=== PATIENT | female | born 1960 | race Caucasian/White ===

== ENCOUNTER 2017-07-17 07:19 | Day surgery (SDC) | payer BC ==
[2017-07-15 12:05] VITALS: BMI 26.3
[~2017-07-17 07:19] MED LIST: LACTATED RINGERS 1,000 ML IV SCH
[2017-07-17 08:23] VITALS: RESP 16; TEMP 97.9
[2017-07-17] MEDS ORDERED: MIDAZOLAM 2 MG/2 ML VIAL ONE (08:56)
[2017-07-17] MEDS ORDERED: fentaNYL (PF) 50 MCG/ML 2 ML AMP ONE (08:56)
[2017-07-17] MEDS ORDERED: PROPOFOL 10 MG/ML 20 ML VIAL IV ONE (08:56)
--- NOTE | 2017-07-17 09:06 | P.GSHP ---
History of Present Illness H&P Date: 07/17/17 Chief Complaint: Dysphagia This a 56-year-old female who presents today for EGD. Patient's had a previous history of gastric sleeve surgery. She's had some dysphagia. Her recent esophagram shows some questionable narrowing of the proximal gastric sleeve. Past Medical History Past Medical History: GERD/Reflux Additional Past Medical History / Comment(s): DYSPHAGIA History of Any Multi-Drug Resistant Organisms: None Reported Past Surgical History: Bariatric Surgery, Section, Cholecystectomy, Hysterectomy, Orthopedic Surgery Additional Past Surgical History / Comment(s): sleeve gastrectomy 2013, keloids removed bilateral ears, heel spur surgery right foot great toe implant bunionectomy, neck surgery c6 c7 Past Anesthesia/Blood Transfusion Reactions: No Reported Reaction Smoking Status: Never smoker Medications and Allergies Home Medications Medication Instructions Recorded Confirmed Type Ascorbic Acid [Vitamin C] 1,000 mg PO DAILY 07/04/17 07/17/17 History Cholecalciferol [Vitamin D3] 1,000 unit PO DAILY 07/04/17 07/17/17 History Multivitamins, Thera [Multivitamin 1 tab PO DAILY 07/04/17 07/17/17 History (formulary)] Omeprazole 40 mg PO DAILY 07/04/17 07/17/17 History buPROPion HCL [Wellbutrin XL] 300 mg PO DAILY 07/04/17 07/17/17 History Allergies Allergy/AdvReac Type Severity Reaction Status Date / Time adhesive Allergy Rash/Hives Verified 07/17/17 08:12 aspirin Allergy Swelling Verified 07/17/17 08:12 codeine Allergy Rash/Hives Verified 07/17/17 08:12 latex Allergy Rash/Hives Verified 07/17/17 08:12 Penicillins Allergy Rash/Hives Verified 07/17/17 08:12 pneumococcal vaccine Allergy Rash/Hives Verified 07/17/17 08:12 Cephalosporins AdvReac Anaphylaxis Verified 07/17/17 08:13 Sulfa (Sulfonamide AdvReac Unknown Verified 07/17/17 08:12 Antibiotics) Surgical - Exam Vital Signs Temp Pulse Resp BP Pulse Ox 97.9 F 60 16 114/71 100 07/17/17 08:22 07/17/17 08:22 07/17/17 08:22 07/17/17 08:22 07/17/17 08:22 - General well developed, no distress - Eyes PERRL - ENT normal pinna - Neck no masses - Respiratory normal expansion - Cardiovascular Rhythm: regular - Abdomen Abdomen: soft, non tender Assessment and Plan Plan: Dysphagia. Possible gastric sleeve narrowing. We'll perform EGD with balloon dilatation
--- NOTE | 2017-07-17 09:24 | P.OP ---
Date of Procedure: 07/17/17 Preoperative Diagnosis: Dysphagia Postoperative Diagnosis: Mild antral gastritis Mild narrowing of gastric sleeve near incisura Procedure(s) Performed: EGD with dilatation Anesthesia: MAC Surgeon: Lennox Hernandez Pathology: other (Antrum) Condition: stable Description of Procedure: The patient's placed on the endoscopy table lateral position. She received IV sedation. The gastroscope placed oropharynx passed in the esophagus and into the stomach. Scope was then placed through the pylorus into the first second portion duodenum. Scope was withdrawn. And appeared to be a slight narrowing of the sleeve near the incisura of the stomach. Scope was brought back further and there is no other narrowing seen. The GE junction was patent. The 20 mm balloon was then placed across incisura this was dilated. There is known to any injury to the stomach. The scope was withdrawn. Patient top procedure well and was sent to recovery in stable condition.
[2017-07-17 09:45] VITALS: PULSE 53
[2017-07-17 09:55] VITALS: BP 114/68
== END 2017-07-17 10:15 | disposition home or self-care (01) ==
LOC: ORWHC2ENDO 07:19
PROVIDERS: ATTEND Surgery
DX: K31.89 Other diseases of stomach and duodenum (principal); K29.50 Unspecified chronic gastritis without bleeding; K21.9 Gastro-esophageal reflux disease without esophagitis; R01.1 Cardiac murmur, unspecified; Z79.899 Other long term (current) drug therapy; Z88.6 Allergy status to analgesic agent; Z88.1 Allergy status to other antibiotic agents; Z91.040 Latex allergy status; Z88.5 Allergy status to narcotic agent; Z88.0 Allergy status to penicillin; Z88.2 Allergy status to sulfonamides; Z88.7 Allergy status to serum and vaccine; Z91.09 Other allergy status, other than to drugs and biological substances
CPT/HCPCS: 88305; 88342; 43239; 43245; J2250; J3010; J2704; C1726; 43249

== ENCOUNTER → 2017-08-01 | Outpatient (CLI) | payer BC ==
[2017-08-01 10:14] VITALS: BP 122/65; PULSE 53; RESP 16; TEMP 97.6; BMI 26.2
--- NOTE | 2017-08-02 09:31 | P.HPBAR ---
Bariatric H&P - History & Physicial H&P Date: 08/01/17 History & Physicial: Visit/CC: EGD follow up Patient initial contact: Initial weight: Initial weight in pounds: Height: 5 ft 2 in Initial BMI: Last weight: Current weight: 65.181 kg Current weight in pounds: 143.70 Current BMI: 26.2 [place] body weight (based on NIH guidelines): 49.895 kg Excess body weight loss: The patient is a 57 year-old F who presents for Bariatric Assessment. Patient presents today for gastric sleeve follow-up. She states her GERD and dysphagia symptoms have improved. She denies any dysphagia. She's had minimal GERD. The patient underwent EGD with balloon dilatation approximately 3 weeks ago. Past Medical History Past Medical History: GERD/Reflux Additional Past Medical History / Comment(s): DYSPHAGIA History of Any Multi-Drug Resistant Organisms: None Reported Past Surgical History: Bariatric Surgery, Section, Cholecystectomy, Hysterectomy, Orthopedic Surgery Additional Past Surgical History / Comment(s): sleeve gastrectomy 2013, keloids removed bilateral ears, heel spur surgery right foot great toe implant bunionectomy, neck surgery c6 c7 Past Anesthesia/Blood Transfusion Reactions: No Reported Reaction Smoking Status: Never smoker Surgical - Exam Vital Signs Temp Pulse Resp BP 97.6 F 53 L 16 122/65 08/01/17 10:08 08/01/17 10:08 08/01/17 10:08 08/01/17 10:08 - General well developed, well nourished, no distress - Eyes PERRL, normal ocular movement - ENT normal pinna - Cardiovascular Rhythm: regular - Abdomen Abdomen: soft, non tender Bariatric Assessment & Plan Plan: The patient is doing well from her sleeve yesterday. Her dysphagia has resolved. Her GERD symptoms are minimal and will be observed. She'll follow- up in 8 weeks. Bariatric Checklist Checklist: Plan: Checklist: EGD: 1. Hiatal hernia: 2. H. Pylori: HgbA1c: Vitamin D: Smoking: Never smoker Primary care physician referral: dr pichardo Psychiatry clearance: Cardiology clearance: Sleep study: Diet journal: VTE risk score: VTE risk level: Rehab needs at discharge:
--- NOTE | 2017-08-02 09:31 | P.HPBAR ---
Bariatric H&P - History & Physicial H&P Date: 08/01/17 History & Physicial: Visit/CC: EGD follow up Patient initial contact: Initial weight: Initial weight in pounds: Height: 5 ft 2 in Initial BMI: Last weight: Current weight: 65.181 kg Current weight in pounds: 143.70 Current BMI: 26.2 [place] body weight (based on NIH guidelines): 49.895 kg Excess body weight loss: The patient is a 57 year-old F who presents for Bariatric Assessment. Past Medical History Past Medical History: GERD/Reflux Additional Past Medical History / Comment(s): DYSPHAGIA History of Any Multi-Drug Resistant Organisms: None Reported Past Surgical History: Bariatric Surgery, Section, Cholecystectomy, Hysterectomy, Orthopedic Surgery Additional Past Surgical History / Comment(s): sleeve gastrectomy 2013, keloids removed bilateral ears, heel spur surgery right foot great toe implant bunionectomy, neck surgery c6 c7 Past Anesthesia/Blood Transfusion Reactions: No Reported Reaction Smoking Status: Never smoker Surgical - Exam Vital Signs Temp Pulse Resp BP 97.6 F 53 L 16 122/65 08/01/17 10:08 08/01/17 10:08 08/01/17 10:08 08/01/17 10:08 Bariatric Checklist Checklist: Plan: Checklist: EGD: 1. Hiatal hernia: 2. H. Pylori: HgbA1c: Vitamin D: Smoking: Never smoker Primary care physician referral: dr pichardo Psychiatry clearance: Cardiology clearance: Sleep study: Diet journal: VTE risk score: VTE risk level: Rehab needs at discharge:
== END | disposition home or self-care (01) ==
LOC: BARWHC3 09:47
PROVIDERS: ATTEND Surgery
DX: Z09 Encounter for follow-up examination after completed treatment for conditions other than malignant neoplasm (principal); K21.9 Gastro-esophageal reflux disease without esophagitis; Z98.84 Bariatric surgery status
CPT/HCPCS: 99211

== ENCOUNTER → 2017-10-31 | Outpatient (CLI) | payer BC ==
[2017-10-31 09:40] VITALS: BP 114/65; PULSE 61; TEMP 97.9; BMI 26.9
[2017-10-31 09:48] LABS: HCT 39.6 % (34.0-46.0); HGB 12.7 gm/dL (11.4-16.0); MCH 28.8 pg (25.0-35.0); MCHC 32.2 g/dL (31.0-37.0); MCV 89.5 fL (80.0-100.0); Mean Platelet Volume 7.3; Platelet Count 234 k/uL (150-450); RBC 4.42 m/uL (3.80-5.40); RDW 13.8 % (11.5-15.5); WBC 4.5 k/uL (3.8-10.6)
[2017-10-31 10:22] LABS: ALT 28 U/L (9-52); AST 26 U/L (14-36); Albumin 4.3 g/dL (3.5-5.0); Alkaline Phosphatase 86 U/L (38-126); Anion Gap 9 mmol/L; Blood Urea Nitrogen 16 mg/dL (7-17); Calcium 9.4 mg/dL (8.4-10.2); Carbon Dioxide 29 mmol/L (22-30); Chloride 103 mmol/L (98-107); Glucose 91 mg/dL (74-99); Potassium 4.1 mmol/L (3.5-5.1); Sodium 141 mmol/L (137-145); Total Bilirubin 0.4 mg/dL (0.2-1.3); Total Protein 7.3 g/dL (6.3-8.2)
--- NOTE | 2017-10-31 10:42 | P.HPBAR ---
Bariatric H&P - History & Physicial H&P Date: 10/31/17 History & Physicial: Visit/CC: sleeve follow up Patient initial contact: Initial weight: 322 Initial weight in pounds: Height: 5 ft 2 in Initial BMI: Last weight: 145 Current weight: 66.769 kg Current weight in pounds: 147.20 Current BMI: 26.9 [place] body weight (based on NIH guidelines): 49.895 kg Excess body weight loss: The patient is a 57 year-old F who presents for Bariatric Assessment. The patient presents today for sleeve gastrectomy follow-up. She states she's been a few pounds over the holiday. I'll refer chart she appears to have gained 3 pounds. She has some minimal chronic GERD. Past Medical History Past Medical History: GERD/Reflux Additional Past Medical History / Comment(s): DYSPHAGIA History of Any Multi-Drug Resistant Organisms: None Reported Past Surgical History: Bariatric Surgery, Section, Cholecystectomy, Hysterectomy, Orthopedic Surgery Additional Past Surgical History / Comment(s): sleeve gastrectomy 2013, keloids removed bilateral ears, heel spur surgery right foot great toe implant bunionectomy, neck surgery c6 c7 Past Anesthesia/Blood Transfusion Reactions: No Reported Reaction Past Psychological History: Anxiety Smoking Status: Never smoker Past Alcohol Use History: None Reported Past Drug Use History: None Reported Surgical - Exam Vital Signs Temp Pulse BP 97.9 F 61 114/65 10/31/17 09:35 10/31/17 09:35 10/31/17 09:35 - General well developed, no distress - Eyes PERRL - ENT normal pinna - Neck no masses - Respiratory normal expansion - Cardiovascular Rhythm: regular - Abdomen Abdomen: soft, non tender Results - Labs 10/31/17 09:31 10/31/17 09:31 Diabetes panel 10/31/17 Range/Units 09:31 Sodium 141 (137-145) mmol/L Potassium 4.1 (3.5-5.1) mmol/L Chloride 103 (98-107) mmol/L Carbon Dioxide 29 (22-30) mmol/L BUN 16 (7-17) mg/dL Creatinine 0.86 (0.52-1.04) mg/dL Glucose 91 (74-99) mg/dL Calcium 9.4 (8.4-10.2) mg/dL AST 26 (14-36) U/L ALT 28 (9-52) U/L Alkaline Phosphatase 86 (38-126) U/L Total Protein 7.3 (6.3-8.2) g/dL Albumin 4.3 (3.5-5.0) g/dL Calcium panel 10/31/17 Range/Units 09:31 Calcium 9.4 (8.4-10.2) mg/dL Albumin 4.3 (3.5-5.0) g/dL Pituitary panel 10/31/17 Range/Units 09:31 Sodium 141 (137-145) mmol/L Potassium 4.1 (3.5-5.1) mmol/L Chloride 103 (98-107) mmol/L Carbon Dioxide 29 (22-30) mmol/L BUN 16 (7-17) mg/dL Creatinine 0.86 (0.52-1.04) mg/dL Glucose 91 (74-99) mg/dL Calcium 9.4 (8.4-10.2) mg/dL Adrenal panel 10/31/17 Range/Units 09:31 Sodium 141 (137-145) mmol/L Potassium 4.1 (3.5-5.1) mmol/L Chloride 103 (98-107) mmol/L Carbon Dioxide 29 (22-30) mmol/L BUN 16 (7-17) mg/dL Creatinine 0.86 (0.52-1.04) mg/dL Glucose 91 (74-99) mg/dL Calcium 9.4 (8.4-10.2) mg/dL Total Bilirubin 0.4 (0.2-1.3) mg/dL AST 26 (14-36) U/L ALT 28 (9-52) U/L Alkaline Phosphatase 86 (38-126) U/L Total Protein 7.3 (6.3-8.2) g/dL Albumin 4.3 (3.5-5.0) g/dL Bariatric Assessment & Plan Plan: Status post sleeve yesterday. Patient is doing quite well. Her GERD is minimal. She'll have her omeprazole reordered. She'll follow-up in 3-4 months. Some baseline labs were ordered. Bariatric Checklist Checklist: Plan: Checklist: EGD: 1. Hiatal hernia: 2. H. Pylori: HgbA1c: Vitamin D: Smoking: Never smoker Primary care physician referral: dr pichardo Psychiatry clearance: Cardiology clearance: Sleep study: Diet journal: VTE risk score: VTE risk level: Rehab needs at discharge:
[2017-10-31 16:05] LABS: Vitamin D 25 Hydroxy 43.6 ng/mL (30.0-100.0)
[2017-11-04 04:32] LABS: Vitamin B1 41 ug/L (38-122)
[2017-11-04 06:40] LABS: Vitamin A 50 ug/dL (38-106)
== END | disposition home or self-care (01) ==
LOC: BARWHC3 08:52
PROVIDERS: ATTEND Surgery
DX: Z09 Encounter for follow-up examination after completed treatment for conditions other than malignant neoplasm (principal); F41.9 Anxiety disorder, unspecified; Z98.84 Bariatric surgery status
CPT/HCPCS: 36415; 80053; 82306; 82607; 84425; 84590; 85027; 99211

== ENCOUNTER → 2021-05-14 | Outpatient (CLI) | payer OTHER ==
[2021-05-14 14:19] VITALS: BP 122/72; PULSE 68; RESP 18; TEMP 98.3; BMI 31.1
--- NOTE | 2021-05-14 15:12 | P.HPBAR ---
Bariatric H&P - History & Physicial H&P Date: 05/14/21 History & Physicial: Visit/CC: follow up Patient initial contact: Initial weight: 100.698 kg Initial weight in pounds: 222.00 Height: 5 ft 2 in Initial BMI: 40.6 Last weight: Current weight: 77.111 kg Current weight in pounds: 170.00 Current BMI: 31.1 [place] body weight (based on NIH guidelines): 49.895 kg Excess body weight loss: 46.4% The patient is a 60 year-old F who presents for Bariatric Assessment. She presents today for bariatric follow-up. She has some complaints of mild GERD. Past Medical History Past Medical History: GERD/Reflux Additional Past Medical History / Comment(s): DYSPHAGIA. kidney stones. History of Any Multi-Drug Resistant Organisms: None Reported Past Surgical History: Bariatric Surgery, Section, Cholecystectomy, Hysterectomy, Orthopedic Surgery Additional Past Surgical History / Comment(s): sleeve gastrectomy 2013, keloids removed bilateral ears, heel spur surgery right foot great toe implant bunionectomy, neck surgery c6 c7 Past Anesthesia/Blood Transfusion Reactions: No Reported Reaction Past Psychological History: Anxiety Smoking Status: Never smoker Past Alcohol Use History: None Reported Past Drug Use History: None Reported Surgical - Exam Vital Signs Temp Pulse Resp BP 98.3 F 68 18 122/72 05/14/21 14:09 05/14/21 14:09 05/14/21 14:09 05/14/21 14:09 - General well developed, well nourished, no distress - Eyes PERRL - ENT normal pinna - Neck no masses - Respiratory normal expansion - Cardiovascular Rhythm: regular - Abdomen Abdomen: soft, non tender Bariatric Assessment & Plan Plan: Status post sleeve gastrectomy. Patient is minimal observed. She'll follow-up in 4 weeks. Bariatric Checklist Checklist: Plan: Checklist: EGD: 1. Hiatal hernia: 2. H. Pylori: HgbA1c: Vitamin D: Smoking: Never smoker Primary care physician referral: dr pichardo Psychiatry clearance: Cardiology clearance: Sleep study: Diet journal: VTE risk score: VTE risk level: Rehab needs at discharge:
[2021-05-14 15:21] LABS: HCT 37.2 % (34.0-46.0); HGB 12.2 gm/dL (11.4-16.0); MCH 28.9 pg (25.0-35.0); MCHC 32.7 g/dL (31.0-37.0); MCV 88.5 fL (80.0-100.0); Mean Platelet Volume 7.2; Platelet Count 315 k/uL (150-450); RBC 4.21 m/uL (3.80-5.40); RDW 14.4 % (11.5-15.5); WBC 5.3 k/uL (3.8-10.6)
[2021-05-14 19:33] LABS: % Iron Saturation 6.65 (12.00-45.00); African American GFR (CKD) 70.4 (60.0-200.0); Albumin 4.5 g/dL (3.80-4.90); Albumin/Globulin Ratio 1.61 (1.60-3.17); Anion Gap 9.8 mmol/L (4.00-12.00); Calcium 9.8 mg/dL (8.7-10.3); Carbon Dioxide 27.2 mmol/L (21.6-31.8); Ferritin 11.2 ng/mL (10.0-291.0); Folate, Serum 16.8 ng/mL; Globulin 2.8 g/dL (1.6-3.3); Magnesium 1.8 mg/dL (1.5-2.4); Non-African American GFR(CKD) 60.8 (60.0-200.0); Potassium 4.4 mmol/L (3.5-5.5); Total Bilirubin 0.3 mg/dL (0.2-1.2); Total Protein 7.3 g/dL (6.2-8.2)
[2021-05-15 11:51] LABS: Zinc, Serum 56 ug/dL (60-130)
[2021-05-16 07:09] LABS: Vitamin A 81 ug/dL (38-106)
[2021-05-16 07:51] LABS: Vit B1(Thiamine) 52 ug/L (38-122)
== END | disposition home or self-care (01) ==
LOC: BARWHC3 13:46
PROVIDERS: ATTEND Surgery
DX: E66.01 Morbid (severe) obesity due to excess calories (principal); D50.8 Other iron deficiency anemias; E55.9 Vitamin D deficiency, unspecified; K90.9 Intestinal malabsorption, unspecified; T56.894A Toxic effect of other metals, undetermined, initial encounter; Z71.3 Dietary counseling and surveillance; Z68.31 Body mass index [BMI] 31.0-31.9, adult
CPT/HCPCS: 80053; 82306; 82607; 82728; 82746; 83540; 83550; 83735; 84255; 84425; 84443; 84590; 84630; 85027; 97803; 99211

== ENCOUNTER → 2021-07-16 | Outpatient (CLI) | payer OTHER ==
[2021-07-16 14:00] VITALS: BP 145/77; PULSE 65; RESP 18; TEMP 97.9; BMI 31.2
--- NOTE | 2021-07-16 14:17 | P.HPBAR ---
Bariatric H&P - History & Physicial H&P Date: 07/16/21 History & Physicial: Visit/CC: follow up Patient initial contact: Initial weight: 100.698 kg Initial weight in pounds: 222.00 Height: 5 ft 2 in Initial BMI: 40.6 Last weight: Current weight: 77.564 kg Current weight in pounds: 171.00 Current BMI: 31.2 [place] body weight (based on NIH guidelines): 49.895 kg Excess body weight loss: 45.5% The patient is a 60 year-old F who presents for Bariatric Assessment. Patient feels frustrated weight loss. She has not lost any significant weight over the last several months. She's had some mild GERD. Past Medical History Past Medical History: GERD/Reflux Additional Past Medical History / Comment(s): DYSPHAGIA. kidney stones. History of Any Multi-Drug Resistant Organisms: None Reported Past Surgical History: Bariatric Surgery, Section, Cholecystectomy, Hysterectomy, Orthopedic Surgery Additional Past Surgical History / Comment(s): sleeve gastrectomy 2013, keloids removed bilateral ears, heel spur surgery right foot great toe implant bunionectomy, neck surgery c6 c7 Past Anesthesia/Blood Transfusion Reactions: No Reported Reaction Past Psychological History: Anxiety Smoking Status: Never smoker Past Alcohol Use History: None Reported Past Drug Use History: None Reported Surgical - Exam Vital Signs Temp Pulse Resp BP 97.9 F 65 18 145/77 07/16/21 13:53 07/16/21 13:53 07/16/21 13:53 07/16/21 13:53 - General well developed, well nourished, no distress - Eyes PERRL - ENT normal pinna - Neck no masses - Respiratory normal expansion - Cardiovascular Rhythm: regular - Abdomen Abdomen: soft, non tender Bariatric Assessment & Plan Plan: Status post sleeve gastrectomy. Patient will focus on dieting. She'll follow- up in 3 months. Her GERD is minimal and will be observed. Bariatric Checklist Checklist: Plan: Checklist: EGD: 1. Hiatal hernia: 2. H. Pylori: HgbA1c: Vitamin D: Smoking: Never smoker Primary care physician referral: dr pichardo Psychiatry clearance: Cardiology clearance: Sleep study: Diet journal: VTE risk score: VTE risk level: Rehab needs at discharge:
== END | disposition home or self-care (01) ==
LOC: BARWHC3 13:23
PROVIDERS: ATTEND Surgery
DX: K21.9 Gastro-esophageal reflux disease without esophagitis (principal)
CPT/HCPCS: 99211

== ENCOUNTER → 2025-03-07 | Outpatient (CLI) | payer MEDICARE, OTHER ==
--- NOTE | 2025-03-07 09:07 | P.HPBAR ---
Bariatric H&P - History & Physicial H&P Date: 03/07/25 History & Physicial: Visit/CC: Patient initial contact: Initial weight: 100.698 kg Initial weight in pounds: Height: Initial BMI: Last weight: Current weight: Current weight in pounds: Current BMI: [place] body weight (based on NIH guidelines): Excess body weight loss: The patient is a 64 year-old F who presents for Bariatric Assessment. The patient ra presents today with complaints of weight gain, gerd and nausea and diarrhea. The patient has not been seen for approximately 4-1/2 years. Past Medical History Past Medical History: GERD/Reflux Additional Past Medical History / Comment(s): DYSPHAGIA. kidney stones. History of Any Multi-Drug Resistant Organisms: None Reported Past Surgical History: Bariatric Surgery, Section, Cholecystectomy, Hysterectomy, Orthopedic Surgery Additional Past Surgical History / Comment(s): sleeve gastrectomy 2013, keloids removed bilateral ears, heel spur surgery right foot great toe implant bunionectomy, neck surgery c6 c7 Past Anesthesia/Blood Transfusion Reactions: No Reported Reaction Past Psychological History: Anxiety Smoking Status: Never smoker Past Alcohol Use History: None Reported Past Drug Use History: None Reported Surgical - Exam - General well developed, well nourished, no distress - Eyes PERRL - ENT normal pinna - Neck no masses - Respiratory normal expansion - Cardiovascular Rhythm: regular - Abdomen Abdomen: soft, non tender Bariatric Assessment & Plan Plan: Gerd, nausea, diarrhea. Patient will be scheduled for EGD and colonoscopy. Bariatric Checklist Checklist: Plan: Checklist: EGD: 1. Hiatal hernia: 2. H. Pylori: HgbA1c: Vitamin D: Smoking: Never smoker Primary care physician referral: dr pichardo Psychiatry clearance: Cardiology clearance: Sleep study: Diet journal: VTE risk score: VTE risk level: Rehab needs at discharge:
[2025-03-07 09:25] VITALS: BP 136/81; PULSE 61; RESP 16; TEMP 97.7
== END ==
LOC: BARWHC3 08:29
PROVIDERS: ATTEND Surgery
DX: R11.0 Nausea (principal); R19.7 Diarrhea, unspecified; K21.9 Gastro-esophageal reflux disease without esophagitis; Z91.048 Other nonmedicinal substance allergy status; Z91.040 Latex allergy status; Z88.5 Allergy status to narcotic agent; Z88.6 Allergy status to analgesic agent; Z88.7 Allergy status to serum and vaccine; Z88.0 Allergy status to penicillin; Z88.2 Allergy status to sulfonamides
CPT/HCPCS: 99202

== ENCOUNTER 2025-03-28 12:35 | Day surgery (SDC) | payer MEDICARE, OTHER ==
[~2025-03-28 12:35] MED LIST changes: -LACTATED RINGERS 1,000 ML IV SCH; +LIDOCAINE 1% (10MG/ML) FOR IV START INTRADERMA PRN
[2025-03-28] MEDS: IV FLUID CONTINUATION 1,000 ML IV ONE (12:53)
[2025-03-28 13:06] VITALS: TEMP 97.8
[2025-03-28] MEDS: LACTATED RINGERS 1,000 ML IV SCH (13:18)
[2025-03-28] MEDS ORDERED: LIDOCAINE 1% INJ 10MG/ML (20 ML MDV) ONE (14:45)
[2025-03-28] MEDS ORDERED: PROPOFOL 10 MG/ML 20 ML VIAL IV ONE (14:45)
--- NOTE | 2025-03-28 14:48 | P.GSHP ---
History of Present Illness H&P Date: 03/28/25 Chief Complaint: Gerd, screening colonoscopy This is a 64-year-old female presents today for EGD and screening colonoscopy. Patient is issues gerd. Past Medical History Past Medical History: Cancer, GERD/Reflux, Hyperlipidemia, Thyroid Disorder Additional Past Medical History / Comment(s): DYSPHAGIA. kidney stones. skin ca- squamous cell. hx juan's thyroid disorder. diarrhea x one year. History of Any Multi-Drug Resistant Organisms: None Reported Past Surgical History: Bariatric Surgery, Breast Surgery, Section, Cholecystectomy, Hysterectomy, Orthopedic Surgery Additional Past Surgical History / Comment(s): sleeve gastrectomy 2013, keloids removed bilateral ears, heel spur surgery right foot great toe implant b unionectomy, neck surgery c6 c7. breast reduction. cataracts removed. Past Anesthesia/Blood Transfusion Reactions: No Reported Reaction Smoking Status: Never smoker Medications and Allergies Home Medications Medication Instructions Recorded Confirmed Type Cholecalciferol [Vitamin D3] 1,000 unit PO DAILY 07/04/17 03/28/25 History Multivitamins, Thera [Multivitamin 1 tab PO DAILY 07/04/17 03/28/25 History (formulary)] Omeprazole 40 mg PO DAILY #60 capsule. 10/31/17 03/28/25 Rx Acetaminophen [Tylenol] 500 mg PO Q4-6H PRN 05/14/21 03/28/25 History Naproxen [Naprosyn] 250 mg PO DAILY PRN 03/07/25 03/28/25 History Sertraline [Zoloft] 25 mg PO DAILY 03/07/25 03/28/25 History Allergies Allergy/AdvReac Type Severity Reaction Status Date / Time adhesive Allergy Rash/Hives Verified 03/28/25 13:16 aspirin Allergy Swelling Verified 03/28/25 13:16 codeine Allergy Rash/Hives Verified 03/28/25 13:16 latex Allergy Rash/Hives Verified 03/28/25 13:16 Penicillins Allergy Rash/Hives Verified 03/28/25 13:16 pneumococcal vaccine Allergy Rash/Hives Verified 03/28/25 13:16 Cephalosporins AdvReac Anaphylaxis Verified 03/28/25 13:16 Sulfa (Sulfonamide AdvReac Unknown Verified 03/28/25 13:16 Antibiotics) Surgical - Exam Vital Signs Temp Pulse Resp BP Pulse Ox 97.8 F 71 17 139/79 97 03/28/25 12:53 03/28/25 12:53 03/28/25 12:53 03/28/25 12:53 03/28/25 12:53 - General well developed, well nourished, no distress - Eyes PERRL - ENT normal pinna - Neck no masses - Respiratory normal expansion - Cardiovascular Rhythm: regular - Abdomen Abdomen: soft, non tender Assessment and Plan Assessment: Gerd. Will perform EGD. Will also perform screening colonoscopy.
--- NOTE | 2025-03-28 15:12 | P.OP ---
Date of Procedure: 03/28/25 Preoperative Diagnosis: Gerd Screening colonoscopy Postoperative Diagnosis: Antral gastritis Mild diverticulosis Procedure(s) Performed: EGD Colonoscopy Anesthesia: MAC Surgeon: Lennox Hernandez Pathology: other (Antrum) Condition: stable Disposition: PACU Description of Procedure: The patient was placed on the endoscopy table in the lateral position. She received IV sedation. The Gastroflux oropharynx passed in the esophagus and stomach. Scope was then placed through the pylorus. The 1st and 2nd portion of the duodenum appeared normal. The scope was then brought back to the antrum this appeared mildly inflamed. A biopsy was performed. The scope was withdrawn. The patient's gastric sleeve appeared to be without evidence of obstruction. The GE junction was at 40 cm. The distal esophagus appeared normal. The proximal esophagus appeared normal. Scope withdrawn patient. Next digital rectal exam was performed. This revealed no abnormalities. The flexible colonoscope was then placed patient anus and passed throughout the entire colon. The ileocecal valve was visualized. The cecum, ascending and transverse colon appeared normal. The descending and sigmoid colon there was mild diverticular changes. The scope was [place] the rectum this appeared normal. Scope withdrawn the patient.
[2025-03-28 15:26] VITALS: BP 133/75; PULSE 59; RESP 16
== END 2025-03-28 15:48 | disposition home or self-care (01) ==
LOC: ORWHC2ENDO 12:35
PROVIDERS: ATTEND Surgery
DX: Z12.11 Encounter for screening for malignant neoplasm of colon (principal); K29.50 Unspecified chronic gastritis without bleeding; K21.9 Gastro-esophageal reflux disease without esophagitis; K57.30 Diverticulosis of large intestine without perforation or abscess without bleeding; C44.99 Other specified malignant neoplasm of skin, unspecified; E78.5 Hyperlipidemia, unspecified; E06.3 Autoimmune thyroiditis; E07.9 Disorder of thyroid, unspecified; G47.33 Obstructive sleep apnea (adult) (pediatric); Z87.442 Personal history of urinary calculi; Z90.710 Acquired absence of both cervix and uterus; Z90.49 Acquired absence of other specified parts of digestive tract; Z91.040 Latex allergy status; Z88.0 Allergy status to penicillin; Z88.7 Allergy status to serum and vaccine; Z88.1 Allergy status to other antibiotic agents; Z88.2 Allergy status to sulfonamides; Z79.899 Other long term (current) drug therapy
CPT/HCPCS: 88305; 43239; J2003; J2704; G0121

== ENCOUNTER → 2025-04-20 | Outpatient (CLI) | payer MEDICARE, OTHER ==
[2025-04-20 15:32] VITALS: BP 151/83; PULSE 69; RESP 16; TEMP 98.1; BMI 35.6
--- NOTE | 2025-04-20 16:01 | P.HPBAR ---
Bariatric H&P - History & Physicial H&P Date: 04/20/25 History & Physicial: Visit/CC: Patient initial contact: Initial weight: 100.698 kg Initial weight in pounds: 222.00 Height: 5 ft 2 in Initial BMI: 40.6 Last weight: Current weight: 88.451 kg Current weight in pounds: 195.00 Current BMI: 35.6 [place] body weight (based on NIH guidelines): 50.1 kg Excess body weight loss: 24.2% The patient is a 64 year-old F who presents for Bariatric Assessment. She is a prior sleeve patient. Highest 231. Lowest 131 pounds. She has reflux prior and worse following her sleeve. Her symptoms are worse. She has a history of hiatal hernia. She had her surgeries done at [facility] 2013. She is 11 years out. She comes in with guilt of weight gain. She has moderate reasons for her weight gain. UGI reviewed with complication of sleeve and stricture found. She has kidney stones. She does not keep count of water. GEt labs. Needs My[employer]itness pal. GEt good foundation with diet. Past Medical History Past Medical History: Cancer, GERD/Reflux, Hyperlipidemia, Thyroid Disorder Additional Past Medical History / Comment(s): DYSPHAGIA. kidney stones. skin ca- squamous cell. hx juan's thyroid disorder. diarrhea x one year. History of Any Multi-Drug Resistant Organisms: None Reported Past Surgical History: Bariatric Surgery, Breast Surgery, Section, Cholecystectomy, Hysterectomy, Orthopedic Surgery Additional Past Surgical History / Comment(s): sleeve gastrectomy 2013, keloids removed bilateral ears, heel spur surgery right foot great toe implant bunionectomy, neck surgery c6 c7. breast reduction. cataracts removed. Past Anesthesia/Blood Transfusion Reactions: No Reported Reaction Past Psychological History: Anxiety Smoking Status: Never smoker Past Alcohol Use History: None Reported Past Drug Use History: None Reported Surgical - Exam Vital Signs Temp Pulse Resp BP 98.1 F 69 16 151/83 04/20/25 15:30 04/20/25 15:30 04/20/25 15:30 04/20/25 15:30 Bariatric Checklist Checklist: Plan: Checklist: EGD: 1. Hiatal hernia: 2. H. Pylori: HgbA1c: Vitamin D: Smoking: Never smoker Primary care physician referral: dr pichardo Psychiatry clearance: Cardiology clearance: Sleep study: Diet journal: VTE risk score: VTE risk level: Rehab needs at discharge:
== END ==
LOC: BARWHC3 15:04
PROVIDERS: ATTEND Surgery Plastic and Reconstructive Surgery
DX: E66.01 Morbid (severe) obesity due to excess calories (principal); Z88.0 Allergy status to penicillin; Z88.2 Allergy status to sulfonamides; Z88.1 Allergy status to other antibiotic agents; Z88.5 Allergy status to narcotic agent; Z88.6 Allergy status to analgesic agent; Z88.7 Allergy status to serum and vaccine; Z88.8 Allergy status to other drugs, medicaments and biological substances; Z91.048 Other nonmedicinal substance allergy status; Z68.35 Body mass index [BMI] 35.0-35.9, adult
CPT/HCPCS: 99211

== ENCOUNTER → 2025-04-26 | Outpatient (CLI) | payer MEDICARE, OTHER ==
[2025-04-26 09:16] LABS: INR 0.9 (<1.2); Partial Thromboplastin Time 22.3 sec (22.0-30.0); Prothrombin Time 10.5 sec (10.0-12.5)
[2025-04-26 15:40] LABS: HCT 39.3 % (37.2-46.3); HGB 11.8 g/dL (12.0-15.0); MCH 25.3 pg (27.0-32.0); MCHC 30.0 g/dL (32.0-37.0); MCV 84.2 FL (80.0-97.0); NRBC Per 100 WBC 0 X 10*3/uL (0.00-0.01); Platelet Count 360 X 10*3/uL (140-440); RBC 4.67 X 10*6/uL (4.10-5.20); RDW 16.2 % (11.5-14.5); WBC 5.49 X 10*3/uL (4.50-10.00)
[2025-04-26 15:50] LABS: Prealbumin 22.7 mg/dL (18.0-42.0)
[2025-04-26 16:23] LABS: ALT 17 U/L (8-44); AST 22 U/L (13-35); Albumin 4.5 g/dL (3.8-4.9); Albumin/Globulin Ratio 1.45 Ratio (1.60-3.17); Alkaline Phosphatase 90 U/L (41-126); Anion Gap 12.80 mmol/L (4.00-12.00); BUN/Creat Ratio 19.89 Ratio (12.00-20.00); Blood Urea Nitrogen 17.9 mg/dL (9.0-27.0); Calcium 9.3 mg/dL (8.7-10.3); Carbon Dioxide 25.2 mmol/L (21.6-31.8); Chloride 102 mmol/L (96-109); Cholesterol 209.00 mg/dL (0.00-200.00); Ferritin 14.5 ng/mL (10.0-291.0); Globulin 3.1 g/dL (1.6-3.3); Glucose 98 mg/dL (70-110); HDL Cholesterol 71.40 mg/dL (40.00-60.00); Iron 51 UG/DL (50-170); LDL Cholesterol,Calculated 112.2 mg/dL (0.0-131.0); Magnesium 1.8 mg/dL (1.5-2.4); Potassium 3.8 mmol/L (3.5-5.5); Sodium 140 mmol/L (135-145); Total Iron Binding Capacity 497 UG/DL (228-460); Total Protein 7.6 g/dL (6.2-8.2); Triglycerides 127.00 mg/dL (0.00-149.00); VLDL Calculation 25.40 mg/dL (5.00-40.00); Vitamin B12 355.0 pg/mL (200.0-944.0)
[2025-04-27 10:05] LABS: Zinc, Serum 73 ug/dL (60-130)
== END | disposition home or self-care (01) ==
LOC: LABWHC1 08:25
PROVIDERS: ATTEND Surgery Plastic and Reconstructive Surgery
DX: E66.01 Morbid (severe) obesity due to excess calories (principal); E89.1 Postprocedural hypoinsulinemia; E46 Unspecified protein-calorie malnutrition; K74.1 Hepatic sclerosis
CPT/HCPCS: 84255; 84134; 84425; 80061; 80053; 82607; 82728; 82525; 82746; 83540; 83550; 83735; 84100; 84443; 84590; 84630; 85027; 85610; 85730; 82306; 83970; 83036; 80307; 93005; 36415; G0480; 80323